=== PATIENT | male | born 1960 | race Caucasian/White ===

== ENCOUNTER 2018-07-21 13:19 | Inpatient (IN) | payer OTHER ==
[~2018-07-21] VITALS: Ht 175.3 cm; Wt 83.0 kg
[~2018-07-21 13:19] MED LIST: CIPROFLOXACIN500 M1 PO; FISH OIL 1,001000 M2 PO; PERCOCET 5-3251 EACH PO; UNICOMPLEX M TA1 TA1 PO
[2018-07-21 13:23] VITALS: BP 150/90
[2018-07-21 14:08] LABS: ABSOLUTE BASOPHILS 0.1 thou/uL (0.0-0.2); ABSOLUTE EOSINOPHILS 0.1 thou/uL (0.0-0.7); ABSOLUTE MONOCYTES 0.4 thou/uL (0.0-1.2); ABSOLUTE NEUTROPHILS 2.9 thou/uL (1.6-8.1); BASOPHILS 1.1 %; EOSINOPHILS 1.6 %; HEMOGLOBIN 14.7 gm/dL (14.0-18.0); LYMPHOCYTES 36.2 %; MCH 31.1 pg (26.0-34.0); MCHC 34.2 g/dL (28.0-37.0); MCV 91.1 fL (80.0-100.0); MPV 8.2 fl. (7.2-11.1); NUCLEATED RBCS 0 /100WBC; PLATELET COUNT* 189 thou/uL (150-400); POLYS 54.1 %; RBC 4.71 mil/uL (4.50-6.00); RDW-CV 12.8 % (10.5-14.5); WBC 5.4 thou/uL (4.0-11.0)
[2018-07-21 14:12] LABS: ANION GAP 11 mmol/L (7-16); BUN 10 mg/dL (7-18); CALCIUM 8.8 mg/dL (8.5-10.1); CHLORIDE 103 mmol/L (98-107); CO2 27 mmol/L (21-32); CREATININE 1.1 mg/dL (0.6-1.3); GLUCOSE 142 mg/dL (70-99); INR 1.1; PROTIME 10.8 Seconds (9.20-11.50); SODIUM 141 mmol/L (136-145)
[2018-07-21 14:26] LABS: ALKALINE PHOSPHATASE 65 U/L (46-116); LIPASE 213 U/L (73-393); MAGNESIUM 1.8 mg/dL (1.8-2.4); NT-PRO BRAIN NAT PEPTIDE 168 pg/mL (<300); SGOT 17 U/L (15-37); SGPT 22 U/L (30-65); TOTAL BILIRUBIN 0.9 mg/dL (<0.1-1.0); TOTAL PROTEIN 7.2 g/dL (6.4-8.2); TROPONIN-I LEVEL <0.06 ng/mL (<0.06)
[2018-07-21 16:25] VITALS: BP 122/74
--- NOTE | 2018-07-21 18:02 | NUR ---
PT ADMITTED FROM ER. HISTORY AND ASSESSMENT COMPLETE. SR ON MONITOR. PT ORIENTED TO ROOM, CALL LIGHT, BATHROOM, AND BED CONTROLS. PT VERBALIZED UNDERSTANDING. DENIES PAIN. SPOKE WITH DR RAMOS WHO STATED NO INTERVENTIONS ST THIS TIME. WILL MONITOR CARDIAC RHYTHM AND LABS.
[2018-07-21 20:00] VITALS: BP 112/77
[2018-07-22] VITALS: BP 111/69
[2018-07-22 04:00] VITALS: BP 111/69
--- NOTE | 2018-07-22 04:52 | NUR ---
ASSUMED PT CARE AT 1930. NURSING ASSESSMENT COMPLETED AT START OF SHIFT. PT VOICED NO CONCERNS. BULB SORTER IN PLACE, TRACING SINUS BRADYCARDIA/SINUS RHYTHM THIS SHIFT. HOURLY ROUNDING COMPLETED. PT DENIES PAIN THIS SHIFT. CALL LIGHT WITHIN REACH.
[2018-07-22 05:53] LABS: CHOLESTEROL 203 mg/dL (<200); HDL CHOLESTEROL 50 mg/dL (>40); LDL CHOLESTEROL 139 mg/dL (<100); TC:HDL 4.1 Ratio (Not establshd); TRIGLYCERIDE 74 mg/dL (<150); VLDL 15 mg/dL (<40)
[2018-07-22 06:01] LABS: SERUM ASSESSMENT Clear
[2018-07-22 08:15] VITALS: BP 124/77
--- NOTE | 2018-07-22 11:00 | NUR ---
PATIENT AXOX4, ASSESSMENT CHARTED. PATIENT UP AD RENEE, PRESENT AT THIS TIME. PATIENT IS READY TO GO HOME, DOCTOR NIELSON AT BEDSIDE AT THIS TIME. CALL OUT TO DURGA BONDING EQUIPMENT OPERATOR TO DETERMINE IF HE CAN GET HIS PACEMAKER INTEROGATED OUTPATIENT. NO PAIN, NAUSEA OR SHORTNESS OF AIR.
[2018-07-22 11:21] VITALS: BP 124/77
[2018-07-22] MEDS ORDERED: PEPCID20 MG PO ×2 (11:26→11:48)
--- NOTE | 2018-07-22 11:33 | NUR ---
DURGA PETERSON SAID SHE WOULD RATHER THE PATIENT STAY FOR INTEROGRATION AT 1330 THIS AFTERNOON BUT IF PATIENT REALLY WANTS TO GO THAT HE CAN FOLLOW UP WITH HIS RESIDENT SERVICE COORDINATOR. UPDATED PATIENT. DR NIELSON TO PUT ORDRES AND SCRIPTS IN COMPUTER FOR DISCHARGE.
[2018-07-22 12:00] VITALS: BP 107/74
--- NOTE | 2018-07-22 12:34 | NUR ---
PATIENT SENT HOME WITH ALL BELONGINGS. PRESENT. PATIENT TAKEN BY WHEELCHAIR TO WIFES CAR. ALL PAPERWORK GIVEN TO PATIENT. ALL QUESTIONS ANSWERED
--- NOTE | 2018-07-22 16:25 | EKG ---
[place] [address] ELECTROCARDIOGRAM REPORT Name: HARRY HARRY Room: [address] DIS IN M.R.#: [id number] Admission: 07/21/18 Attend Phys: Rosalba Welch MD Discharge: 07/22/18 Date of : 62 Report #: [id number] THIS REPORT FOR: //name// [facility] ED Test Date: 2018-07-21 Test Time: 13:24:24 Pat Name: HARRY HARRY Department: Room: [facility] Gender: M Barrel Handler: : 1960 Requested By: Alexei Hall Order Number: [id number] MD: Heriberto Duggan Measurements Intervals [place] Rate: 78 P: 69 ME: 189 QRS: 68 QRSD: 109 T: -70 QT: 403 QTc: 460 Interpretive Statements Sinus rhythm Ventricular premature complex Left atrial enlargement Abnormal T, consider ischemia, diffuse leads Compared to ECG 06/18/2015 07:26:54 Ventricular premature complex(es) now present T-wave abnormality now present Sinus bradycardia no longer present Possible ischemia still present Electronically Signed On 07-22-2018 16:25:03 PERL DEVELOPER by Heriberto Duggan [email or web address] <ELECTRONICALLY SIGNED> By: Heriberto Duggan MD, [facility] 07/22/18 1625 1324 1324 Heriberto Duggan MD, [facility] /EPI
== END 2018-07-22 12:50 | disposition home or self-care (01) | DRG 392 ==
LOC: M.ERS 13:19 → M.2W 15:02 → M.TBA-ER 15:02 → M.2W 16:32
PROVIDERS: Emergency Medicine Emergency Medical Services; ADMIT Internal Medicine
DX: K21.9 Gastro-esophageal reflux disease without esophagitis (principal); I24.9 Acute ischemic heart disease, unspecified; I42.2 Other hypertrophic cardiomyopathy; R00.2 Palpitations; Z95.810 Presence of automatic (implantable) cardiac defibrillator; R94.31 Abnormal electrocardiogram [ECG] [EKG]; E78.5 Hyperlipidemia, unspecified; Z79.899 Other long term (current) drug therapy; Z53.29 Procedure and treatment not carried out because of patient's decision for other reasons

== ENCOUNTER 2019-02-03 11:31 | Emergency (ER) | payer OTHER ==
[~2019-02-03] VITALS: Ht 175.3 cm; Wt 78.0 kg
[~2019-02-03 11:31] MED LIST changes: +PEPCID20 MG PO
[2019-02-03] MEDS ORDERED: ATENOLOL 25 MG25 M1 PO (11:41)
[2019-02-03 12:25] LABS: ABSOLUTE EOSINOPHILS 0.1 thou/uL (0.0-0.7); ABSOLUTE LYMPHOCYTES 1.3 thou/uL (0.8-5.3); ABSOLUTE MONOCYTES 0.4 thou/uL (0.0-1.2); ABSOLUTE NEUTROPHILS 3.9 thou/uL (1.6-8.1); BASOPHILS 0.8 %; EOSINOPHILS 1.2 %; HEMATOCRIT 45.3 % (42.0-52.0); HEMOGLOBIN 15.7 gm/dL (14.0-18.0); LYMPHOCYTES 22.3 %; MCH 31.6 pg (26.0-34.0); MCHC 34.5 g/dL (28.0-37.0); MCV 91.4 fL (80.0-100.0); MONOCYTES 7.1 %; MPV 7.5 fl. (7.2-11.1); NUCLEATED RBCS 0 /100WBC; PLATELET COUNT* 189 thou/uL (150-400); POLYS 68.6 %; RBC 4.96 mil/uL (4.50-6.00); RDW-CV 12.7 % (10.5-14.5); WBC 5.6 thou/uL (4.0-11.0)
[2019-02-03 12:36] LABS: ANION GAP 10 mmol/L (7-16); BUN 17 mg/dL (7-18); CALCIUM 8.8 mg/dL (8.5-10.1); CHLORIDE 104 mmol/L (98-107); CO2 28 mmol/L (21-32); GLUCOSE 117 mg/dL (70-99); POTASSIUM 4.2 mmol/L (3.5-5.1); SODIUM 142 mmol/L (136-145)
[2019-02-03 12:37] LABS: APTT 26.3 Seconds (25.0-31.3); INR 1.1
[2019-02-03 12:50] LABS: ALBUMIN 4.1 g/dL (3.4-5.0); ALKALINE PHOSPHATASE 70 U/L (46-116); CK-MB MASS 0.8 ng/mL (<0.5-3.6); LIPASE 128 U/L (73-393); MAGNESIUM 1.9 mg/dL (1.8-2.4); NT-PRO BRAIN NAT PEPTIDE 319 pg/mL (<300); SGOT 27 U/L (15-37); SGPT 45 U/L (30-65); TOTAL BILIRUBIN 1.2 mg/dL (<0.1-1.0); TOTAL PROTEIN 7.4 g/dL (6.4-8.2); TROPONIN-I LEVEL <0.06 ng/mL (<0.06)
[2019-02-03] MEDS ORDERED: XANAX 0.25 MG0.25 MG PO (13:05)
[2019-02-03 13:15] VITALS: BP 131/82
--- NOTE | 2019-02-03 16:21 | EKG ---
[place] [address] ELECTROCARDIOGRAM REPORT Name: HARRY HARRY Room: [facility].#: [id number] Admission: 02/03/19 Attend Phys: Discharge: 02/03/19 Date of : 62 Report #: [id number] THIS REPORT FOR: //name// [facility] ED Test Date: 2019-02-03 Test Time: 11:35:14 Pat Name: HARRY HARRY Department: Room: Gender: M Gas Check Pad Maker: DORINA : 1960 Requested By: Dariusz Sullivan Order Number: [id number] MD: Mukund Carpio Measurements Intervals [place] Rate: 67 P: 63 NJ: 204 QRS: 93 QRSD: 148 T: -14 QT: 448 QTc: 473 Interpretive Statements Sinus rhythm Borderline prolonged [place] interval Left atrial enlargement RBBB and LPFB Probable lateral infarct, old Baseline wander in lead(s) V2 Compared to ECG 07/21/2018 13:24:24 Right bundle-branch block now present Ventricular premature complex(es) no longer present Electronically Signed On 02-03-2019 16:21:42 CDT by Mukund Carpio [email or web address] <ELECTRONICALLY SIGNED> By: Mukund Carpio MD, [facility] 02/03/19 1621 1135 1135 Mukund Carpio MD, [facility] /EPI
== END 2019-02-03 13:15 | disposition home or self-care (01) ==
LOC: M.ERS 11:31
PROVIDERS: Family Medicine
DX: R00.2 Palpitations (principal); F41.9 Anxiety disorder, unspecified; I42.8 Other cardiomyopathies; R20.0 Anesthesia of skin; R11.0 Nausea; Z96.89 Presence of other specified functional implants